=== PATIENT | male | born 1940 | race Caucasian/White ===

== ENCOUNTER → 2019-02-18 | Outpatient (CLI) | payer MEDICARE, BC ==
[2013-11-06 08:08] VITALS: BP 137/76
[~2019-02-18] MED LIST: ESOM40CA25 PO; FERR325C; HYDR-2145 PO; HYDR5SUS PO; MELO15TA23 PO; OLME1TAB21 PO; RANI300C PO; SIMV40TA18 PO
--- NOTE | 2019-02-24 13:50 | RAD ---
Ultrasound-guided, transrectal placement of fiducial markers in the prostate. 02/24/2019 11:46 AM Procedure: Clinical Indication: prostate ca, radiation therapy planning Discussion: The procedure was explained in its entirety to the patient or the patients designated authorization representative by a member of the treatment team, including a discussion of the risks, benefits and commonly accepted alternatives to the procedure, as well as the expected consequences of no therapy whatsoever. Discussion of the risks included, but was not limited to, those that are most frequent and those that are rare but possibly severe or life-threatening, as well as the possibility of unforeseen complications. A timeout procedure was performed. Limited transrectal ultrasound evaluation of the prostate was performed for planning purposes. Under direct ultrasound guidance 3 fiducial markers were placed. The needle guide an ultrasound probe was removed. No immediate complications were identified. Impression: Transrectal ultrasound guided placement of prosthetic markers
== END ==
LOC: US 09:15
PROVIDERS: ATTEND Radiology Radiation Oncology
DX: C61 Malignant neoplasm of prostate (principal)
CPT/HCPCS: 55876; 77387